=== PATIENT | male | born 2000 | race Two or more races ===

== ENCOUNTER 2023-01-15 19:29 | Emergency (ER) | payer SELFPAY ==
[2023-01-15 19:39] VITALS: BP 171/90; PULSE 106; RESP 14; TEMP 36.9; O2SAT 98
[2023-01-15 20:07] LABS: Strep Group A RT-PCR DETECTED (Negative)
--- NOTE | 2023-01-15 20:10 | ED.GENADULT ---
HPI - General Adult General Chief complaint: Unspecified Stated complaint: Sore throat Time Seen by Provider: 01/15/23 20:10 Source: patient Mode of arrival: ambulatory Limitations: no limitations History of Present Illness HPI narrative: Patient is a 22-year-old male presents more department today ambulatory with a steady gait for evaluation of a sore throat, congestion and pain with swallowing over the last few days. He did take DayQuil this morning. He states that his blood pressure always runs high and he is not diagnosed with high blood pressure take anything for blood pressure. He denies any chest pain, shortness a breath, nausea, vomiting, known exposure to any illness. Related Data Allergies Allergy/AdvReac Type Severity Reaction Status Date / Time No Known Allergies Allergy Verified 01/15/23 19:30 Review of Systems Review of Systems: CONSTITUTIONAL: Denies fever, chills, or sweats. EYES: Denies visual changes, redness, or discharge. ENT: Denies rhinorrhea. +congestion, +sore throat, pain with swallowing. denies ear pain. CARDIOVASCULAR: Denies chest pain, palpitations, or edema. RESPIRATORY: Denies cough or dyspnea. GASTROINTESTINAL: Denies abdominal pain, nausea, vomiting, or diarrhea. GENITOURINARY: Denies dysuria or hematuria. SKIN: Denies rash or itching. MUSCULOSKELETAL: Denies back pain, joint pain, or myalgia. NEUROLOGIC: Denies headache, numbness, or weakness. PSYCHIATRIC: Denies anxiety or depression. All systems reviewed & are unremarkable except as noted in HPI and below Exam Narrative: GENERAL: Well-appearing, well-nourished,overweight, and in no acute distress. HEAD: Normocephalic, atraumatic. ENT: nasal congestion present, thre is 2+ tonsillar swelling with erythema/exudate. controlling secretions. no hot potatoe voice noted. EYES: PERRLA and EOMI. NECK: Supple.cervical adenopathy CHEST: respirations regular and non-labored. clear to ascultation. HEART: Regular rate and rhythm. Normal peripheral pulses. EXTREMITIES: full ROM SKIN: Warm, dry, no rash. NEURO: No focal deficits. Alert and oriented x3. CN II-XII grossly intact. PSYCH: Normal mood and affect. Course Vital Signs Vital signs: Vital Signs Temperature 98.4 F 01/15/23 19:39 Pulse Rate 106 H 01/15/23 19:39 Respiratory Rate 14 01/15/23 19:39 Blood Pressure 171/90 H 01/15/23 19:39 Pulse Oximetry 98 01/15/23 19:39 Oxygen Delivery Room Air 01/15/23 19:39 Temperature 98.4 F 01/15/23 19:39 Pulse Rate 106 H 01/15/23 19:39 Respiratory Rate 14 01/15/23 19:39 Blood Pressure 171/90 H 01/15/23 19:39 Pulse Oximetry 98 01/15/23 19:39 Oxygen Delivery Room Air 01/15/23 19:39 Medical Decision Making MDM Narrative Medical decision making narrative: Patient presents for viral URI symptoms.? Rapid strep positive.- will treat with antibiotics. no peritonsillar abscess on examination. covid/flu negative. ? BP elevated. Patient is asymptomatic specifically no chest pain, shortness of breath, headache or vision changes.? All other vital signs are within normal limits. No indication for emergent workup at this time. Discussed risk of untreated blood pressure which includes heart attack, stroke, organ damage, permanent disability and possibly .? Advised need for very close follow-up with PCP for close reevaluation.? Patient expresses verbal understanding of this. Discussed supportive care measures for symptoms.? Discussed discharge medications.? Patient is nontoxic in appearance.? Patient in no acute distress.? Vitals within normal limits.? Discussed return precautions with the patient including all the red flag signs or symptoms of when to return the patient. The patient verbalized understanding and was agreeable with discharge and close follow-up Vital Signs Vital Signs: Vital Signs Temperature 98.4 F 01/15/23 19:39 Pulse Rate 106 H 01/15/23 19:39 Respiratory Rate 14 01/15/23 19:39 [place]
[2023-01-15 20:20] LABS: Influenza A QL RT-PCR Negative (Negative); Influenza B QL RT-PCR Negative (Negative); RSV RNA, RT-PCR Negative (Negative); SARS-CoV-2 RNA PCR Negative (Negative)
[2023-01-15] MEDS: LIDOCAINE HCL 2% VISC SOLN 15 ML UDC PO (21:06)
[2023-01-15] MEDS: KETOROLAC 30 MG/ML VIAL (*BKC) IM (21:06)
[2023-01-15] MEDS: AMOXICILLIN 500 MG CAPSULE 1000 MG PO (21:06)
[2023-01-15] MEDS: predniSONE 20 MG TABLET 60 MG PO (21:06)
== END 2023-01-15 21:14 | disposition home or self-care (01) ==
PROVIDERS: Emergency Medicine; Emergency Provider Nurse Practitioner
DX: J02.0 Streptococcal pharyngitis (principal); R03.0 Elevated blood-pressure reading, without diagnosis of hypertension
CPT/HCPCS: 87637; 87651; 96372; 99283; A9270; J1885; J7512